=== PATIENT | female | born 1985 | race Caucasian/White ===

== ENCOUNTER 2017-05-23 16:10 | Emergency (ER) | payer OTHER ==
[2017-05-23 16:15] VITALS: BP 120/72; TEMP 98.1; BMI 31.1
[2017-05-23] MEDS ORDERED: SILVER SULFADIAZINE 1% TOP CREAM 50 GM JAR TP ONE ×2 (16:43→17:12)
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
== END 2017-05-23 17:21 | disposition home or self-care (01) ==
LOC: JERFT 16:10
PROC: 2W2FX4Z Dressing of Left Hand using Bandage (ICD-10-PCS; principal; 2017-05-23)
DX: T23.262A Burn of second degree of back of left hand, initial encounter (principal); T31.0 Burns involving less than 10% of body surface; X10.2XXA Contact with fats and cooking oils, initial encounter; Y93.G3 Activity, cooking and baking; Y92.9 Unspecified place or not applicable
CPT/HCPCS: 99281-25

== ENCOUNTER 2019-02-04 10:42 | Emergency (ER) | payer OTHER ==
[2019-02-04 10:49] VITALS: BP 111/58; PULSE 64; TEMP 98.3; BMI 29.2
--- NOTE | 2019-02-04 11:18 | PDOC ---
History of Present Illness - General Chief Complaint: Injury Stated Complaint: FALL Time Seen by Provider: 02/04/19 11:05 History Source: Patient - History of Present Illness Initial Comments: 02/04/19 11:55 33-year-old female status post slip and fall on on a wet floor and right hip pain. Patient is able to weight-bear reports pain with ROM. Patient also complained pain radiating to right lower extremity. Denies back pain. No past medical history Past History - Past Medical History Allergies/Adverse Reactions: Allergies Allergy/AdvReac Type Severity Reaction Status Date / Time No Known Drug Allergies Allergy Verified 02/04/19 10:44 Home Medications: Ambulatory Orders Ibuprofen 600 mg PO QID PRN #20 tablet 02/04/19 Asthma: No Cancer: No Cardiac Disorders: No COPD: No Diabetes: No HTN: No Seizures: No Thyroid Disease: No - Immunization History Immunization Up to Date: Yes - Suicide/Smoking/Psychosocial Hx Smoking History: Never smoked Have you smoked in the past 12 months: No Number of Cigarettes Smoked Daily: 0 Cigars Per Day: 0 Hx Alcohol Use: No Drug/Substance Use Hx: No Substance Use Type: None Hx Substance Use Treatment: No Review of Systems - Review of Systems Able to Perform ROS?: Yes Is the patient limited Romansh proficient: No Constitutional: No: Symptoms Reported, See HPI, Chills, Diaphoresis, Fever, Loss of Appetite, Malaise, Night Sweats, Weakness, Weight Stable, Unintentional Wgt. Loss, Unexplained wgt Loss, Other Musculoskeletal: Yes: Other (right hip pain) *Physical Exam - Vital Signs Last Vital Signs Temp Pulse Resp BP Pulse Ox 98.3 F 64 18 111/58 L 100 02/04/19 10:44 02/04/19 10:44 02/04/19 10:44 02/04/19 10:44 02/04/19 10:44 - Physical Exam General Appearance: Yes: Appropriately Dressed Musculoskeletal: positive: Other (bruising to right thigh, limited rom to right hip. 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 intact, Fully Oriented, Alert, Normal Mood/ Affect Medical Decision Making - Medical Decision Making 02/04/19 12:01 A: right hip pain P: urine xray: no acute fracture pain control outpatient ortho follow up *DC/Admit/Observation/Transfer Diagnosis at time of Disposition: Acute right hip pain - Discharge Dispostion Disposition: HOME - Prescriptions Prescriptions: Ibuprofen 600 mg PO QID PRN #20 tablet PRN Reason: Pain - Referrals Referrals: René Soria MD [Staff Physician] - 24 hours - Patient Instructions Printed Discharge Instructions: Help for Hip Pain Additional Instructions: Take ibuprofen every 6 hours as needed for pain. Apply ice to the area do light stretches. Follow up with an orthopedic doctor as soon as possible. Return to the emergency room for any worsening symptoms - Post Discharge Activity Forms/Work/School Notes: Back to Work
[2019-02-04] MEDS ORDERED: KETOROLAC TROMETHAMINE 30 MG/1 ML VIAL IM ONE (11:49)
[2019-02-04] MEDS ORDERED: KETOROLAC TROMETHAMINE 30 MG/1 ML VIAL ONE (11:57)
== END 2019-02-04 12:42 | disposition home or self-care (01) ==
LOC: JERFT 10:42
PROC: 3E0233Z Introduction of Anti-inflammatory into Muscle, Percutaneous Approach (ICD-10-PCS; principal; 2019-02-04)
DX: M25.551 Pain in right hip (principal); W01.0XXA Fall on same level from slipping, tripping and stumbling without subsequent striking against object, initial encounter; Y93.89 Activity, other specified; Y92.89 Other specified places as the place of occurrence of the external cause; Y99.8 Other external cause status
CPT/HCPCS: 73523-TC-FY; 73552-TC-RT-FY; 84703; 99281-25

== ENCOUNTER 2019-05-31 19:22 | Observation (INO) | payer OTHER ==
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
[2019-05-31] MEDS ORDERED: SODIUM CHLORIDE 1,000 ML IV STA (20:08)
--- NOTE | 2019-05-31 20:20 | PDOC ---
Attending Attestation - Resident Resident Name: LionelEliezerFernando - ED Attending Attestation I have performed the following: I have examined & evaluated the patient, The case was reviewed & discussed with the resident, I agree w/resident's findings & plan, Exceptions are as noted - HPI HPI: 05/31/19 20:18 33-year-old female presents to the emergency department status post a witnessed syncopal event this evening. She states that about a month ago she had a similar episode but did not seek any medical treatment. She states that she noted some vision changes and then felt weakness numbness tingling in her lower extremities and then went down. The family states she was unresponsive for about 2 minutes 05/31/19 20:20 - Physicial Exam PE: 05/31/19 21:29 33-year-old female who no acute distress seated on the gurney Head normocephalic atraumatic Neck is supple Lungs are clear to auscultation bilaterally CVS regular rate and rhythm S1-S2 no rubs or gallops or murmurs appreciated Abdomen is soft, nontender Skin warm and dry No flank tenderness elicited on exam Neuro alert, motor strength 5/5 bilaterally, moving all extremities Psych flat affect - Medical Decision Making 05/31/19 21:32 labs reviewed,neg trop,neg preg, electrolytes are normal ct scan head pending imp syncope plan OBS telemetry 05/31/19 21:36
[2019-05-31 20:36] LABS: BASO % 0.7 % (0-2.0); EOS % 3.3 % (0-4.5); HEMATOCRIT 34.6 % (32.4-45.2); LYMPH % 29.4 % (8-40); MCH 22.9 pg (25.7-33.7); MCHC 31.8 g/dl (32.0-36.0); MONO % 8.5 % (3.8-10.2); NEUT % 58.1 % (42.8-82.8); PLATELET COUNT 213 K/MM3 (134-434); RBC 4.81 M/mm3 (3.60-5.2); RDW 16.6 % (11.6-15.6); WHITE BLOOD COUNT 7.7 K/mm3 (4.0-10.0)
[2019-05-31 20:49] LABS: PH,URINE 6.5 (5.0-8.0); URINE APPEARANCE CLEAR; URINE BILIRUBIN NEGATIVE (NEGATIVE); URINE COLOR YELLOW; URINE GLUCOSE (UA) NEGATIVE (NEGATIVE); URINE KETONE NEGATIVE (NEGATIVE); URINE LEUK ESTERASE NEGATIVE (NEGATIVE); URINE NITRITE NEGATIVE (NEGATIVE); URINE PROTEIN NEGATIVE (NEGATIVE); URINE UROBILINOGEN 0.2 mg/dL (0.2-1.0)
[2019-05-31 21:05] LABS: ALBUMIN 3.9 g/dl (3.4-5.0); ALK PHOS 94 U/L (45-117); ANION GAP 8 MMOL/L (8-16); BILIRUBIN,TOTAL 0.2 mg/dL (0.2-1); CALCIUM 8.7 mg/dL (8.5-10.1); CHLORIDE 107 mmol/L (98-107); CO2 24 mmol/L (21-32); CREATININE 0.8 mg/dL (0.55-1.3); GLUCOSE,RANDOM 88 mg/dL (74-106); POTASSIUM 3.5 mmol/L (3.5-5.1); SGOT/AST 14 U/L (15-37); SGPT/ALT 26 U/L (13-61); SODIUM 139 mmol/L (136-145); TOT PROT 8.5 g/dl (6.4-8.2)
--- NOTE | 2019-05-31 23:34 | PN ---
Teaching Attending Note Name of Resident: Malissa Dunn ATTENDING PHYSICIAN STATEMENT I saw and evaluated the patient. I reviewed the resident's note and discussed the case with the resident. I agree with the resident's findings and plan as documented. SUBJECTIVE: 33-year-old female with 2 episodes of syncope last 06/01/19. First episode occurred at noon while she was cooking and second episode occurred later in the day in the afternoon. Episodes were witnessed by her family members, Lasted about 2 minutes each. There was no postictal state and patient was able to recover quickly after both incidences. No loss of bowel or bladder control. She denied any significant palpitations preceding the events. Denied any significant trauma to head. There was no seizure-like activity including convulsions. No history of epilepsy. Denied any significant headaches. Reports similar episode several weeks ago for which patient did not seek medical attention. No family history of cardiac disease. OBJECTIVE: Last Vital Signs Temp Pulse Resp BP Pulse Ox 98.4 F 67 19 104/61 100 05/31/19 19:47 05/31/19 21:21 05/31/19 21:21 05/31/19 21:21 05/31/19 21:21 GENERAL: Well developed, well nourished. Awake and alert. No acute distress. HEENT: Normocephalic, atraumatic. PERRLA, EOMI. No conjunctival pallor. Sclera are non- icteric. Moist mucous membranes. Oropharynx is clear. NECK: Supple. Full ROM. No JVD. Carotid pulses 2+ and symmetric, without bruits. No thyromegaly. No lymphadenopathy. CARDIOVASCULAR: Regular rate and rhythm. No murmurs, rubs, or gallops. Distal pulses are 2+ and symmetric. PULMONARY: No evidence of respiratory distress. Lungs clear to auscultation bilaterally. No wheezing, rales or rhonchi. ABDOMINAL: Soft. Non-tender. Non-distended. No rebound or guarding. No organomegaly. Normoactive bowel sounds. MUSCULOSKELETAL Normal range of motion at all joints. No bony deformities or tenderness. No CVA tenderness. EXTREMITIES: No cyanosis. No clubbing. No edema. No calf tenderness. SKIN: Warm and dry. Normal capillary refill. No rashes. No jaundice. PSYCHIATRIC: Cooperative. Good eye contact. Appropriate mood and affect. Abnormal Lab Results 1005/31/19 05/31/19 20:28 20:28 20:28 MCV 72.0 L MCH 22.9 L MCHC 31.8 L RDW 16.6 H AST 14 L Total Protein 8.5 H Ur Specific [place] 1.006 L Imaging reviewed EKG showed sinus rhythm with some PVCs, no ischemic changes noted. Head CT showed possible Chiari type I malformation ASSESSMENT AND PLAN: Syncope episodes as described above. Uncertain etiology, may be vasovagal or orthostatic however should rule out cardiogenic cause. May have occult underlying arrhythmia.Less likely to be seizure episode as patient did not have any preceding aura or postictal state. Noted to have possible carry type I malformation on head CT however doubt it would result in syncope episode. Admit to telemetry observation Cardiac monitoring Transthoracic echo Check orthostatics Bedrest and fall precautions Gentle IV fluid hydration Cardiology evaluation for possible Holter monitoring Check urine toxicology screen Outpatient brain MRI for possible Chiari type I malformation further evaluation Heparin subcu for DVT prophylaxis
[2019-06-01] MEDS ORDERED: ACETAMINOPHEN 325 MG TABLET (FP) PO PRN (00:08)
[2019-06-01] MEDS ORDERED: SODIUM CHLORIDE 1,000 ML IV SCH (00:15)
--- NOTE | 2019-06-01 00:17 | HP ---
CHIEF COMPLAINT: Syncope x 2 PCP: HISTORY OF PRESENT ILLNESS: 33 y/o F with no significant PMHx presents after multiple syncopal episodes. Patient says she first experienced a syncopal episode 2 months ago; At this time she denied any preceeding sx's and upon waking, she felt fine and thus did not seek medical attention. Today, she woke in her usual state of health. Around noon, patient was cooking, getting ready to bake tortillas when suddenly she collapsed. Her sister was able to catch her before she hit the ground. Patient says she felt some preceeding dizziness. Family mentions that patient fainted for about 2 minutes and upon regaining conciousness, patient felt numbness in her posterior lower extremities b/l. She then rested until the evening when again, while preparing tortillas, patient syncopized in a similar fashion prompting her to visit the ED. Patient denies any associated convulsions , tongue biting or loss of bowel/bladder control but endorses preceeding dizziness with both of todays episodes. Denies any fevers, chills, chest pain, SOB, nausea, vomiting, diarrhea, constipation, dysuria. Patient is primarily greenlandic speaking thus the hx was obtained via [id number]. ER course was notable for: (1) (2) (3) Recent Travel: Denies PAST MEDICAL HISTORY: Denies PAST SURGICAL HISTORY: 4 C-Sections Social History: Smoking: Denies Alcohol:Denies Drugs: Denies Occupation: None Residence: Home with family Ambulation: Without assistance Allergies No Known Drug Allergies Allergy (Verified 02/04/19 10:44) HOME MEDICATIONS: Home Medications Medication Instructions Recorded Ibuprofen 600 mg PO QID PRN #20 tablet 02/04/19 REVIEW OF SYSTEMS As per HPI PHYSICAL EXAMINATION Vital Signs - 24 hr 05/31/19 05/31/19 19:47 21:21 Temperature 98.4 F Pulse Rate 68 Pulse Rate [ 67 Apical] Respiratory 19 Rate Blood Pressure 106/73 Blood Pressure 104/61 [Left Arm] O2 Sat by Pulse 99 100 Oximetry (%) GENERAL: A&Ox3, NAD HEAD: NCAT EYES: PERRL, EOMI EARS, NOSE, THROAT: Moist mucous membranes. NECK: Supple, No JVD LUNGS: CTAB, No wheezes, no crackles HEART: Regular rate and rhythm, normal S1 and S2 without murmur ABDOMEN: Soft, nontender, not distended, + bowel sounds, no guarding, no rebound EXTREMITIES: 2+ pulses, No peripheral edema. NEUROLOGICAL: Cranial nerves II-XII intact. Normal speech SKIN: Warm, dry Laboratory Results - last 24 hr 05/31/19 05/31/19 05/31/19 20:28 20:28 20:28 WBC 7.7 RBC 4.81 Hgb 11.0 Hct 34.6 D MCV 72.0 L MCH 22.9 L MCHC 31.8 L RDW 16.6 H Plt Count 213 D MPV 8.0 Absolute Neuts (auto) 4.5 Neutrophils % 58.1 D Lymphocytes % 29.4 D Monocytes % 8.5 Eosinophils % 3.3 Basophils % 0.7 Nucleated RBC % 0 Sodium 139 Potassium 3.5 Chloride 107 Carbon Dioxide 24 Anion Gap 8 BUN 11.0 Creatinine 0.8 Est GFR (CKD-EPI)AfAm 112.27 Est GFR (CKD-EPI)NonAf 96.87 Random Glucose 88 Calcium 8.7 Total Bilirubin 0.2 AST 14 L ALT 26 Alkaline Phosphatase 94 Creatine Kinase 80 Troponin I < 0.02 Total Protein 8.5 H Albumin 3.9 TSH Urine Color Urine Appearance Urine pH Ur Specific [place] Urine Protein Urine Glucose (UA) Urine Ketones Urine Blood Urine Nitrite Urine Bilirubin Urine Urobilinogen Ur Leukocyte Esterase Urine HCG, Qual Negative 05/31/19 05/31/19 20:28 20:28 WBC RBC Hgb Hct MCV MCH MCHC RDW Plt Count MPV Absolute Neuts (auto) Neutrophils % Lymphocytes % Monocytes % Eosinophils % Basophils % Nucleated RBC % Sodium Potassium Chloride Carbon Dioxide Anion Gap BUN Creatinine Est GFR (CKD-EPI)AfAm Est GFR (CKD-EPI)NonAf Random Glucose Calcium Total Bilirubin AST ALT Alkaline Phosphatase Creatine Kinase Troponin I Total Protein Albumin TSH 1.30 Urine Color Yellow Urine Appearance Clear Urine pH 6.5 Ur Specific [place] 1.006 L Urine Protein Negative Urine Glucose (UA) Negative Urine Ketones Negative Urine Blood Negative Urine Nitrite Negative Urine Bilirubin Negative Urine Urobilinogen 0.2 Ur Leukocyte Esterase Negative Urine HCG, Qual Active Medications Acetaminophen (Tylenol -) 650 mg PO Q4H PRN PRN Reason: PAIN Sodium Chloride (Normal Saline -) 1,000 mls @ 75 mls/hr IV ASDIR COUNTS INCLUDE 234 BEDS AT THE [facility] Last Admin: 06/01/19 01:13 Dose: 75 mls/hr ASSESSMENT/PLAN: 33 y/o F with no significant PMHx presents after multiple syncopal episodes. #Syncope -Unclear etiology, Less likely Orthostatic given HPI, Will consider Cardiac and neuro causes -Trop <0.02 x1 -EKG revealing Frequent PVC's, VR 82, QTc 460 -Check Mag Stat, Repeat EKG -CT Head Noncon does not reveal any acute pathology -Check Orthostatics, Echo, UTox -NS @ 75 -Neurochecks Q2H -Seizure, Fall precautions -Tele -Cardio (Dr. 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 - New Patient This patient is new to me today: Yes Date on this admission: 06/01/19 - Critical Care Critical Care patient: No ATTENDING PHYSICIAN STATEMENT I saw and evaluated the patient. I reviewed the resident's note and discussed the case with the resident. I agree with the resident's findings and plan as documented. SUBJECTIVE: OBJECTIVE: ASSESSMENT AND PLAN:
[2019-06-01 06:23] VITALS: BMI 29.7
[2019-06-01] MEDS: HEPARIN NA (PORCINE) 5,000 UNITS/ML 1ML VIAL SQ SCH ×2 (06:32→15:25)
[2019-06-01 07:24] LABS: BASO % 0.6 % (0-2.0); EOS % 3.6 % (0-4.5); HEMATOCRIT 28.1 % (32.4-45.2); HEMOGLOBIN 9.4 GM/dL (10.7-15.3); LYMPH % 39.6 % (8-40); MCHC 33.4 g/dl (32.0-36.0); MEAN CELL VOLUME 71.8 fl (80-96); MEAN PLT VOLUME 8.3 fl (7.5-11.1); MONO % 7.6 % (3.8-10.2); NEUT % 48.6 % (42.8-82.8); PLATELET COUNT 162 K/MM3 (134-434); RBC 3.91 M/mm3 (3.60-5.2); RDW 16.9 % (11.6-15.6); WHITE BLOOD COUNT 5.2 K/mm3 (4.0-10.0)
--- NOTE | 2019-06-01 07:50 | DS ---
Physical Exam: SUBJECTIVE: Patient seen and examined OBJECTIVE: Vital Signs Period Temp Pulse Resp BP Sys/Phan Pulse Ox Last 24 Hr 98.2 F-98.4 F 60-71 18-20 98-119/48-73 98-100 PHYSICAL EXAM GENERAL: The patient is awake, alert, and fully oriented, in no acute distress. HEAD: Normal with no signs of trauma. EYES: PERRL, extraocular movements intact, sclera anicteric, conjunctiva clear. ENT: Ears normal, nares patent, oropharynx clear without exudates, moist mucous membranes. NECK: Trachea midline, full range of motion, supple. LUNGS: Breath sounds equal, clear to auscultation bilaterally, no wheezes, no crackles, no accessory muscle use. HEART: Regular rate and rhythm, S1, S2 without murmur, rub or gallop. ABDOMEN: Soft, nontender, nondistended, normoactive bowel sounds, no guarding, no rebound, no hepatosplenomegaly, no masses. EXTREMITIES: 2+ pulses, warm, well-perfused, no edema. NEUROLOGICAL: Cranial nerves II through XII grossly intact. Normal speech, gait not observed. PSYCH: Normal mood, normal affect. SKIN: Warm, dry, normal turgor, no rashes or lesions noted. LABS Laboratory Results - last 24 hr 05/31/19 05/31/19 05/31/19 20:28 20:28 20:28 WBC 7.7 RBC 4.81 Hgb 11.0 Hct 34.6 D MCV 72.0 L MCH 22.9 L MCHC 31.8 L RDW 16.6 H Plt Count 213 D MPV 8.0 Absolute Neuts (auto) 4.5 Neutrophils % 58.1 D Lymphocytes % 29.4 D Monocytes % 8.5 Eosinophils % 3.3 Basophils % 0.7 Nucleated RBC % 0 Sodium 139 Potassium 3.5 Chloride 107 Carbon Dioxide 24 Anion Gap 8 BUN 11.0 Creatinine 0.8 Est GFR (CKD-EPI)AfAm 112.27 Est GFR (CKD-EPI)NonAf 96.87 Random Glucose 88 Calcium 8.7 Phosphorus Magnesium Total Bilirubin 0.2 AST 14 L ALT 26 Alkaline Phosphatase 94 Creatine Kinase 80 Troponin I < 0.02 Total Protein 8.5 H Albumin 3.9 TSH Urine Color Urine Appearance Urine pH Ur Specific [place] Urine Protein Urine Glucose (UA) Urine Ketones Urine Blood Urine Nitrite Urine Bilirubin Urine Urobilinogen Ur Leukocyte Esterase Urine HCG, Qual Negative 05/31/19 05/31/19 06/01/19 20:28 20:28 00:07 WBC RBC Hgb Hct MCV MCH MCHC RDW Plt Count MPV Absolute Neuts (auto) Neutrophils % Lymphocytes % Monocytes % Eosinophils % Basophils % Nucleated RBC % Sodium Potassium Chloride Carbon Dioxide Anion Gap BUN Creatinine Est GFR (CKD-EPI)AfAm Est GFR (CKD-EPI)NonAf Random Glucose Calcium Phosphorus Magnesium 2.3 Total Bilirubin AST ALT Alkaline Phosphatase Creatine Kinase Troponin I Total Protein Albumin TSH 1.30 Urine Color Yellow Urine Appearance Clear Urine pH 6.5 Ur Specific [place] 1.006 L Urine Protein Negative Urine Glucose (UA) Negative Urine Ketones Negative Urine Blood Negative Urine Nitrite Negative Urine Bilirubin Negative Urine Urobilinogen 0.2 Ur Leukocyte Esterase Negative Urine HCG, Qual 06/01/19 06/01/19 05:25 05:25 WBC 5.2 RBC 3.91 Hgb 9.4 L Hct 28.1 L D MCV 71.8 L MCH 24.0 L MCHC 33.4 RDW 16.9 H Plt Count 162 D MPV 8.3 Absolute Neuts (auto) 2.5 Neutrophils % 48.6 Lymphocytes % 39.6 D Monocytes % 7.6 Eosinophils % 3.6 Basophils % 0.6 Nucleated RBC % 0 Sodium 140 Potassium 3.9 Chloride 112 H Carbon Dioxide 23 Anion Gap 6 L BUN 10.0 Creatinine 0.7 Est GFR (CKD-EPI)AfAm 131.94 Est GFR (CKD-EPI)NonAf 113.84 Random Glucose 83 Calcium 7.7 L Phosphorus 3.4 Magnesium 2.0 Total Bilirubin 0.4 AST 10 L ALT 20 Alkaline Phosphatase 73 Creatine Kinase Troponin I Total Protein 6.5 Albumin 2.9 L TSH Urine Color Urine Appearance Urine pH Ur Specific [place] Urine Protein Urine Glucose (UA) Urine Ketones Urine Blood Urine Nitrite Urine Bilirubin Urine Urobilinogen Ur Leukocyte Esterase Urine HCG, Qual HOSPITAL COURSE: Date of Admission:05/31/19 Date of Discharge: 06/01/19 Minutes to complete discharge: 33 <Lenny Brock - Last Filed: 06/01/19 09:37> Physical Exam: SUBJECTIVE: No complaints today. No telemetry events. OBJECTIVE: Vital Signs Period Temp Pulse Resp BP Sys/Phan Pulse Ox Last 24 Hr 98.2 F-98.4 F 60-71 18-20 98-119/48-73 98-100 PHYSICAL EXAM GENERAL: A&Ox3, NAD HEENT: NCAT, PERRL, EOMI, MMM NECK: No JVD LUNGS: CTA B/l, No wheezes, no crackles HEART: Regular rate and rhythm, normal S1 and S2 without murmur ABDOMEN: Soft, nontender, not distended, + bowel sounds, no guarding, no rebound EXTREMITIES: 2+ pulses, No peripheral edema. NEUROLOGICAL: Cranial nerves II-XII intact. Normal speech SKIN: Warm, dry LABS Laboratory Results - last 24 hr 05/31/19 05/31/19 05/31/19 20:28 20:28 20:28 WBC 7.7 RBC 4.81 Hgb 11.0 Hct 34.6 D MCV 72.0 L MCH 22.9 L MCHC 31.8 L RDW 16.6 H Plt Count 213 D MPV 8.0 Absolute Neuts (auto) 4.5 Neutrophils % 58.1 D Lymphocytes % 29.4 D Monocytes % 8.5 Eosinophils % 3.3 Basophils % 0.7 Nucleated RBC % 0 Sodium 139 Potassium 3.5 Chloride 107 Carbon Dioxide 24 Anion Gap 8 BUN 11.0 Creatinine 0.8 Est GFR (CKD-EPI)AfAm 112.27 Est GFR (CKD-EPI)NonAf 96.87 Random Glucose 88 Calcium 8.7 Magnesium Total Bilirubin 0.2 AST 14 L ALT 26 Alkaline Phosphatase 94 Creatine Kinase 80 Troponin I < 0.02 Total Protein 8.5 H Albumin 3.9 TSH Urine Color Urine Appearance Urine pH Ur Specific [place] Urine Protein Urine Glucose (UA) Urine Ketones Urine Blood Urine Nitrite Urine Bilirubin Urine Urobilinogen Ur Leukocyte Esterase Urine HCG, Qual Negative 05/31/19 05/31/19 06/01/19 20:28 20:28 00:07 WBC RBC Hgb Hct MCV MCH MCHC RDW Plt Count MPV Absolute Neuts (auto) Neutrophils % Lymphocytes % Monocytes % Eosinophils % Basophils % Nucleated RBC % Sodium Potassium Chloride Carbon Dioxide Anion Gap BUN Creatinine Est GFR (CKD-EPI)AfAm Est GFR (CKD-EPI)NonAf Random Glucose Calcium Magnesium 2.3 Total Bilirubin AST ALT Alkaline Phosphatase Creatine Kinase Troponin I Total Protein Albumin TSH 1.30 Urine Color Yellow Urine Appearance Clear Urine pH 6.5 Ur Specific [place] 1.006 L Urine Protein Negative Urine Glucose (UA) Negative Urine Ketones Negative Urine Blood Negative Urine Nitrite Negative Urine Bilirubin Negative Urine Urobilinogen 0.2 Ur Leukocyte Esterase Negative Urine HCG, Qual Imaging: Head CT: Impression: No CT evidence of acute intracranial pathology. Possible mild Chiari type I malformation. MRI evaluation is suggested, nonemergent unless otherwise clinically indicated. Mucosal thickening is seen within the partially imaged upper aspect of the left maxillary sinus. Possible adenoidal hypertrophy. HOSPITAL COURSE: Date of Admission:05/31/19 Date of Discharge: 06/01/19 Pt admitted on 05/31/19 due to syncopal episodes this time while cooking tortillas. Pt denied any trauma due to the episodes. Pt was monitored on telemetry unit and was hydrated with IVF which resulted in negative orthostatic vital signs. Pt's Head CT was positive for Arnold Chiari Malformation (as above ) and while patient was here she did not have any other syncopal episodes. Pt's telemetry did not show any events while she was here. Neurology reviewed patient and reported that she can receive an outpatient MRI and follow-up which is she instructed to do. <Terrance Pierre - Last Filed: 06/01/19 23:42> Discharge Summary Current Active Problems Syncope and collapse (Acute) - Home Medications Comprehensive Discharge Medication List: Ambulatory Orders Ibuprofen 600 mg PO QID PRN #20 tablet 02/04/19 <Lenny Brock - Last Filed: 06/01/19 09:37> Problems reviewed: Yes Reason For Visit: SYNOCOPE AND COLLAPES Current Active Problems Syncope and collapse (Acute) - Home Medications Comprehensive Discharge Medication List: Ambulatory Orders Ibuprofen 600 mg PO QID PRN #20 tablet 02/04/19 <Terrance Pierre - Last Filed: 06/01/19 23:42> Condition: Guarded - Instructions Diet, Activity, Other Instructions: Follow-up: Please follow-up with Dr. Cortes for an outpatient MRI Please follow-up with Dr. Padron for a possible holter or event monitor if your fainting continues Please follow-up with your primary care physician. If you do not have a primary care physician please follow-up with Dr. Lang to establish care Referrals: Owen Lang MD [Staff Physician] - (2-3 days) Haim Padron MD [Staff Physician] - Payam Cortes MD [Staff Physician] - Disposition: HOME This patient is new to me today: Yes Date on this admission: 06/01/19 Emergency Visit: Yes ED Registration Date: 05/31/19 Care time: The patient presented to the Emergency Department on the above date and was hospitalized for further evaluation of their emergent condition. Critical Care patient: No - Discharge Referral Referred to [facility] No <Terrance Pierre - Last Filed: 06/01/19 23:42> ATTENDING PHYSICIAN STATEMENT I saw and evaluated the patient. I reviewed the resident's note and discussed the case with the resident. I agree with the resident's findings and plan as documented. SUBJECTIVE: OBJECTIVE: ASSESSMENT AND PLAN: <Lenny Brock - Last Filed: 06/01/19 09:37> ATTENDING PHYSICIAN STATEMENT I saw and evaluated the patient. I reviewed the resident's note and discussed the case with the resident. I agree with the resident's findings and plan as documented. SUBJECTIVE: OBJECTIVE: ASSESSMENT AND PLAN: <Terrance Pierre - Last Filed: 06/01/19 23:42>
[2019-06-01 08:14] LABS: ALBUMIN 2.9 g/dl (3.4-5.0); BILIRUBIN,TOTAL 0.4 mg/dL (0.2-1); CALCIUM 7.7 mg/dL (8.5-10.1); CREATININE 0.7 mg/dL (0.55-1.3); PHOSPHOROUS 3.4 mg/dL (2.5-4.9); POTASSIUM 3.9 mmol/L (3.5-5.1); TOT PROT 6.5 g/dl (6.4-8.2)
[2019-06-01] MEDS ORDERED: FLU VACCINE QUAD 60 MCG/0.5 ML (MDV 19-20) IM ONE (10:00)
--- NOTE | 2019-06-01 12:08 | EKG ---
Test Reason : Blood Pressure : / mmHG Vent. Rate : 065 BPM Atrial Rate : 065 BPM P-R Int : 164 ms QRS Dur : 078 ms QT Int : 416 ms P-R-T Axes : 040 024 010 degrees QTc Int : 432 ms NORMAL SINUS RHYTHM NORMAL ECG WHEN COMPARED WITH ECG OF 31-MAY-2019 19:51, PREMATURE VENTRICULAR COMPLEXES ARE NO LONGER PRESENT Confirmed by Taz Bullock MD ([id number]) on 06/01/2019 12:08:16 PM Referred By: Confirmed By:Taz Bullock MD
--- NOTE | 2019-06-01 12:10 | EKG ---
Test Reason : Blood Pressure : / mmHG Vent. Rate : 082 BPM Atrial Rate : 082 BPM P-R Int : 166 ms QRS Dur : 090 ms QT Int : 394 ms P-R-T Axes : 044 035 009 degrees QTc Int : 460 ms POOR DATA QUALITY, INTERPRETATION MAY BE ADVERSELY AFFECTED SINUS RHYTHM T WAVE ABNORMALITY, CONSIDER ANTERIOR ISCHEMIA ABNORMAL ECG NO PREVIOUS ECGS AVAILABLE Confirmed by Taz Bullock MD ([id number]) on 06/01/2019 12:09:30 PM Referred By: Confirmed By:Taz Bullock MD
--- NOTE | 2019-06-01 12:13 | ECHO ---
Name: ROSALES MOMIN Exam:Adult Echocardiogram Study Date: 06/01/2019 08:32 AM Age: 33 yrs Reason For Study: Evaluate LV Function Height: 63 in Weight: 165 lb BSA: 1.8 m2 MMode/2D Measurements & Calculations IVSd: 0.94 cm LA dimension: 3.4 cm LVIDd: 4.1 cm ACS: 1.9 cm LVIDs: 2.7 cm LVPWd: 0.95 cm EDV(Teich): 73.1 ml LVOT diam: 2.0 cm ESV(Teich): 27.9 ml RV S Wu: 13.1 cm/sec Doppler Measurements & Calculations MV E max wu: 92.8 cm/sec TV V2 max: 232.1 cm/sec MV A max wu: 70.6 cm/sec TV max P.6 mmHg MV E/A: 1.3 MV dec time: 0.15 sec TR max wu: 289.1 cm/sec Med Peak E' Wu: 10.9 cm/sec TR max P.4 mmHg Med E/e': 8.5 RVSP(TR): 43.4 mmHg Lat Peak E' Wu: 12.3 cm/sec Lat E/e': 7.6 RAP systole: 10.0 mmHg Procedure A two-dimensional transthoracic echocardiogram with color flow and Doppler was performed. The patient was in normal sinus rhythm during the exam. Left Ventricle The left ventricle is normal in size. Left ventricular systolic function is normal. Ejection Fraction = 60%. Left Ventricular Filling pattern is normal for age. Right Ventricle The right ventricle is normal size. The right ventricular systolic function is normal. Atria The left atrial size is normal. Right atrial size is normal. Mitral Valve The mitral valve is normal. There is mild mitral regurgitation. Tricuspid Valve The tricuspid valve is normal. There is trace tricuspid regurgitation. There was insufficient TR dete cted to calculate RV systolic pressure. Aortic Valve The aortic valve is normal in structure and function. The aortic valve is trileaflet. No aortic regur gitation is present. Pulmonic Valve The pulmonic valve is not well seen, but is grossly normal. Trace pulmonic valvular regurgitation. Great Vessels The aortic root is normal size. Pericardium/Pleura There is no pericardial effusion. Interpretation Summary Left ventricular systolic function is normal. Ejection Fraction = 60%. The right ventricular systolic function is normal. There is mild mitral regurgitation. There is trace tricuspid regurgitation. Trace pulmonic valvular regurgitation. There is no pericardial effusion. MD Jam Loya 06/01/2019 12:12 PM
[2019-06-01 14:56] VITALS: BP 110/70; PULSE 60; TEMP 98
== END 2019-06-01 20:04 | disposition home or self-care (01) ==
LOC: JER 19:22 → JERBED 20:43 → J4W 06-01 03:59
PROVIDERS: ADMIT Internal Medicine; ATTEND Internal Medicine
PROC: 3E0337Z Introduction of Electrolytic and Water Balance Substance into Peripheral Vein, Percutaneous Approach (ICD-10-PCS; principal; 2019-05-31)
PROC: 3E0234Z Introduction of Serum, Toxoid and Vaccine into Muscle, Percutaneous Approach (ICD-10-PCS; 2019-05-31)
DX: R55 Syncope and collapse (principal); R71.8 Other abnormality of red blood cells; Z23 Encounter for immunization
CPT/HCPCS: 36415; 70450-TC; 80053; 81003; 82550; 83735; 84100; 84443; 84484; 84703; 85025; 87086; 90471; 93005; 93010; 93306-TC; 96360; 99285-25; G0378; J1644; J7030; Q2036

== ENCOUNTER 2019-06-30 08:05 | Emergency (ER) | payer OTHER ==
[2019-06-30 08:10] VITALS: BP 128/77; PULSE 62; TEMP 98; BMI 29.5
[2019-06-30] MEDS ORDERED: SODIUM CHLORIDE 0.9% 500 ML INFUS.BAG IV ONE (08:27)
[2019-06-30] MEDS ORDERED: ONDANSETRON 4 MG/2 ML VIAL IVPUSH ONE (08:27)
[2019-06-30] MEDS ORDERED: MECLIZINE HCL 25 MG TABLET (FP) PO ONE (08:27)
[2019-06-30] MEDS ORDERED: ONDANSETRON 4 MG/2 ML VIAL ONE (08:41)
--- NOTE | 2019-06-30 08:41 | PDOC ---
History of Present Illness - General Chief Complaint: Pain Stated Complaint: ABD PAIN Time Seen by Provider: 06/30/19 08:11 History Source: Patient Exam Limitations: No Limitations - History of Present Illness Initial Comments: 06/30/19 08:33 32-year-old [place]ruguayan-speaking female denies past medical history presents complaining of general weakness, nausea, intermittent dizziness, intermittent blurry vision, 2 episodes of nonbloody vomiting with epigastric pain when vomiting for the past 3 days. Denies headache, neck pain, fever, chills, diarrhea, chest pain, shortness of breath, tinnitus, falls, urinary complaints or any other symptoms. Patient has been eating and drinking normally. Has not taken any meds for her symptoms. Does not have a PMD. ROS: GENERAL/CONSTITUTIONAL: Generalized weakness, dizziness, no fever, chills HEAD, EYES, EARS, NOSE AND THROAT: Intermittent blurry vision, No ear pain or discharge, No sore throat CARDIOVASCULAR: No chest pain RESPIRATORY: No shortness of breath or cough GASTROINTESTINAL: Epigastric pain, nausea, vomiting, denies diarrhea GENITOURINARY: No dysuria MUSCULOSKELETAL: No neck or back pain SKIN: No rash NEUROLOGIC: No headache, loss of consciousness, or loss of sensation PE: GENERAL: Appears fatigued HEAD: NCAT EYES: Pupils equal, round and reactive to light, sclera anicteric, conjunctiva clear ENT: pharynx: no erythema, no exudate, uvula midline NECK: supple CHEST: nontender RESP: clear, no w/r/r CARDIO: rrr, no m/g/r ABD: +BS, soft, minimal epigastric tenderness to palpation, no rebound, no guarding,, non distended BACK: no midline spinal ttp, no CVAT EXTREMITIES: Normal range of motion, no edema NEUROLOGICAL: Normal speech, normal gait SKIN: Warm, Dry Is this a multiple visit Asthma Patient?: No Past History - Past Medical History Allergies/Adverse Reactions: Allergies Allergy/AdvReac Type Severity Reaction Status Date / Time No Known Drug Allergies Allergy Verified 06/30/19 08:10 Home Medications: Ambulatory Orders Ibuprofen [Motrin -] 600 mg PO PRN PRN 06/30/19 Asthma: No Cancer: No Cardiac Disorders: No COPD: No CHF: No Diabetes: No HTN: No Seizures: No Thyroid Disease: No - Immunization History Td Vaccination: Yes TDAP Vaccination: Yes Immunization Up to Date: Yes - Psycho Social/Smoking Cessation Hx Smoking History: Never smoked Have you smoked in the past 12 months: No Number of Cigarettes Smoked Daily: 0 Cigars Per Day: 0 Information on smoking cessation initiated: No Hx Alcohol Use: Yes (occasional) Drug/Substance Use Hx: No Substance Use Type: None Hx Substance Use Treatment: No *Physical Exam - Vital Signs Last Vital Signs Temp Pulse Resp BP Pulse Ox 98 F 62 17 128/77 99 06/30/19 08:08 06/30/19 08:08 06/30/19 08:08 06/30/19 08:08 06/30/19 08:08 ED Treatment Course - LABORATORY CBC & Chemistry Diagram: 06/30/19 08:35 06/30/19 08:35 Medical Decision Making - Medical Decision Making 06/30/19 08:41 33-year-old complaining of general weakness, intermittent dizziness, intermittent blurry vision, nausea, 2 episodes of vomiting over the past 3 days Ordered urine CBC, CMP, UA IV fluids 1 L Zofran 4 mg IV x1 Meclizine 25 mg p.o. Reassess 06/30/19 11:04 Patient admits feeling sad and depressed given that her attempted to commit suicide 2 months ago. Patient denies suicidal ideation, homicidal thoughts. I called [facility] [phone], they advised patient present to clinic to make an appointment as soon as possible for a visit with a therapist. No indication for the patient to be evaluated by psychiatrist in the ED. Labs reviewed test negative Patient feels better after IV fluids, Zofran IV and meclizine p.o. Advised to make an appointment with a PMD. Return precautions given. Discharge - Discharge Information Problems reviewed: Yes Clinical Impression/Diagnosis: Weakness Condition: Stable Disposition: HOME - Admission No - Follow up/Referral - Patient Discharge Instructions Additional Instructions: Take Zofran 4 mg every 6-8 hours as needed for nausea Take meclizine 25 mg 1 tablet every 8 hours as needed for dizziness Remain hydrated, [place] [address] at to schedule an appointment within 2 to 3 days If worsening abdominal pain, chest pain, shortness of breath, nausea, vomiting, fever, chills, suicidal thoughts, homicidal thoughts return to the ED immediately Call primary care center at [phone] to schedule a follow-up appointment with a medical doctor - Post Discharge Activity
[2019-06-30 08:50] LABS: EOS % 2.7 % (0-4.5); HEMOGLOBIN 10.8 GM/dL (10.7-15.3); MCH 23.5 pg (25.7-33.7); MCHC 32.6 g/dl (32.0-36.0); MEAN CELL VOLUME 72.2 fl (80-96); MEAN PLT VOLUME 7.9 fl (7.5-11.1); MONO % 8.1 % (3.8-10.2); NEUT % 62.2 % (42.8-82.8); PLATELET COUNT 206 K/MM3 (134-434); RBC 4.58 M/mm3 (3.60-5.2); RDW 16.9 % (11.6-15.6); WHITE BLOOD COUNT 5.2 K/mm3 (4.0-10.0)
[2019-06-30] MEDS ORDERED: MECLIZINE HCL 25 MG TABLET (FP) ONE (09:05)
[2019-06-30 09:21] LABS: ALBUMIN 3.8 g/dl (3.4-5.0); BILIRUBIN,TOTAL 0.3 mg/dL (0.2-1); BLOOD UREA NITROGEN 12.2 mg/dL (7-18); CALCIUM 8.8 mg/dL (8.5-10.1); CREATININE 0.6 mg/dL (0.55-1.3); POTASSIUM 4.1 mmol/L (3.5-5.1); TOT PROT 8.4 g/dl (6.4-8.2)
[2019-06-30 10:01] LABS: PH,URINE 6.5 (5.0-8.0); URINE APPEARANCE CLEAR; URINE BILIRUBIN NEGATIVE (NEGATIVE); URINE COLOR YELLOW; URINE GLUCOSE (UA) NEGATIVE (NEGATIVE); URINE KETONE NEGATIVE (NEGATIVE); URINE LEUK ESTERASE NEGATIVE (NEGATIVE); URINE NITRITE NEGATIVE (NEGATIVE); URINE PROTEIN NEGATIVE (NEGATIVE); URINE UROBILINOGEN 0.2 mg/dL (0.2-1.0)
--- NOTE | 2019-06-30 10:56 | PDOC ---
*Physical Exam - Vital Signs Last Vital Signs Temp Pulse Resp BP Pulse Ox 98 F 62 17 128/77 99 06/30/19 08:08 06/30/19 08:08 06/30/19 08:08 06/30/19 08:08 06/30/19 08:08 - Physical Exam Comments: 06/30/19 10:55 The patient was examined by [AIDAN Woodward] under my direct supervision. I personally evaluated the patient. I concur with the above findings and the plan of care. ED Treatment Course - LABORATORY CBC & Chemistry Diagram: 06/30/19 08:35 06/30/19 08:35 - ADDITIONAL ORDERS Additional order review: Laboratory Results 06/30/19 06/30/19 06/30/19 09:50 09:50 08:35 Sodium 137 Potassium 4.1 Chloride 108 H Carbon Dioxide 24 Anion Gap 6 L BUN 12.2 Creatinine 0.6 Est GFR (CKD-EPI)AfAm 138.80 Est GFR (CKD-EPI)NonAf 119.76 Random Glucose 99 Calcium 8.8 Total Bilirubin 0.3 AST 11 L ALT 19 Alkaline Phosphatase 99 Total Protein 8.4 H Albumin 3.8 Urine Color Yellow Urine Appearance Clear Urine pH 6.5 Ur Specific Tutor Key 1.023 Urine Protein Negative Urine Glucose (UA) Negative Urine Ketones Negative Urine Blood Negative Urine Nitrite Negative Urine Bilirubin Negative Urine Urobilinogen 0.2 Ur Leukocyte Esterase Negative Urine HCG, Qual Negative 06/30/19 08:35 RBC 4.58 MCV 72.2 L MCHC 32.6 RDW 16.9 H MPV 7.9 Neutrophils % 62.2 D Lymphocytes % 26.0 D Monocytes % 8.1 Eosinophils % 2.7 Basophils % 1.0 - Medications Given in the ED: ED Medications Discontinued Medications Generic Name Dose Route Start Last Admin Trade Name Freq PRN Reason Stop Dose Admin Meclizine HCl 25 mg 06/30/19 08:27 06/30/19 09:07 Antivert - PO 06/30/19 08:28 25 mg ONCE ONE Administration Ondansetron HCl 4 mg 06/30/19 08:27 06/30/19 08:46 Zofran Injection IVPUSH 06/30/19 08:28 4 mg ONCE ONE Administration Sodium Chloride 1,000 ml 06/30/19 08:27 06/30/19 08:46 Normal Saline - IV 06/30/19 08:28 1,000 ml ONCE ONE Administration Discharge - Discharge Information Problems reviewed: Yes Clinical Impression/Diagnosis: Weakness Condition: Stable Disposition: HOME - Additional Discharge Information Prescriptions: Meclizine HCl 25 mg PO Q6H 7 Days #15 tablet Ondansetron HCl [Zofran] 4 mg PO Q8H 7 Days #15 tablet - Follow up/Referral - Patient Discharge Instructions Patient Printed Discharge Instructions: DI for Abdominal Pain-Adult, DI for Dizziness-Nonvertigo Additional Instructions: Take Zofran 4 mg every 6-8 hours as needed for nausea Take meclizine 25 mg 1 tablet every 8 hours as needed for dizziness Remain hydrated, [place] [id number] at to schedule an appointment within 2 to 3 days If worsening abdominal pain, chest pain, shortness of breath, nausea, vomiting, fever, chills, suicidal thoughts, homicidal thoughts return to the ED immediately Call primary care center at [phone] to schedule a follow-up appointment with a medical doctor - Post Discharge Activity
== END 2019-06-30 11:25 | disposition home or self-care (01) ==
LOC: JER 08:05
PROC: 3E033GC Introduction of Other Therapeutic Substance into Peripheral Vein, Percutaneous Approach (ICD-10-PCS; principal; 2019-06-30)
DX: R53.1 Weakness (principal)
CPT/HCPCS: 36415; 80053; 81003; 84703; 85025; 96374; 99283-25

== ENCOUNTER 2020-08-04 08:09 | Emergency (ER) | payer OTHER ==
[2020-08-04 08:38] VITALS: BMI 31.8
[2020-08-04] MEDS ORDERED: ACETAMINOPHEN 325 MG TABLET (FP) PO ONE (09:36)
[2020-08-04] MEDS ORDERED: ACETAMINOPHEN 325 MG TABLET (FP) ONE (09:41)
[2020-08-04 09:59] LABS: PH,URINE 6.5 (5.0-8.0); URINE APPEARANCE CLOUDY; URINE BILIRUBIN NEGATIVE (NEGATIVE); URINE COLOR YELLOW; URINE GLUCOSE (UA) NEGATIVE (NEGATIVE); URINE KETONE NEGATIVE (NEGATIVE); URINE LEUK ESTERASE NEGATIVE (NEGATIVE); URINE NITRITE NEGATIVE (NEGATIVE); URINE PROTEIN TRACE (NEGATIVE)
[2020-08-04 10:52] VITALS: PULSE 86; TEMP 98.1
[2020-08-04 12:48] VITALS: BP 120/79
== END 2020-08-04 12:48 | disposition home or self-care (01) ==
LOC: JER 08:09
DX: M54.5 Low back pain (principal); Y07.01 Husband, perpetrator of maltreatment and neglect
CPT/HCPCS: 70480-TC; 71046-TC-FY; 81003; 84703; 99285-25

== ENCOUNTER 2022-06-09 19:03 | Emergency (ER) | payer OTHER ==
[2022-06-09 19:12] VITALS: BP 119/80; PULSE 72; RESP 18; TEMP 98.2; BMI 27.4
[2022-06-09 21:13] LABS: BASO % 0.6 % (0-2.0); EOS % 1.5 % (0-4.5); HEMATOCRIT 35.5 % (32.4-45.2); HEMOGLOBIN 11.9 GM/dL (10.7-15.3); LYMPH % 34.2 % (8-40); MCH 26.8 pg (25.7-33.7); MCHC 33.5 g/dl (32.0-36.0); MEAN CELL VOLUME 80.1 fl (80-96); MEAN PLT VOLUME 7.9 fl (7.5-11.1); MONO % 8.7 % (3.8-10.2); PLATELET COUNT 217 10^3/uL (134-434); RBC 4.43 M/mm3 (3.60-5.2); WHITE BLOOD COUNT 4.9 K/mm3 (4.0-10.0)
[2022-06-09 21:22] LABS: INR 1.14 (0.83-1.09); PROTHROMBIN TIME (PATIENT) 13.1 SEC (9.7-13.0)
[2022-06-09 21:25] LABS: ACTIVATED PTT 32.6 SECONDS (25.2-36.5)
[2022-06-09 21:42] LABS: BLOOD UREA NITROGEN 10.3 mg/dL (7-18); CALCIUM 8.6 mg/dL (8.5-10.1)
[2022-06-09 21:47] LABS: BILIRUBIN,TOTAL 0.4 mg/dL (0.2-1); TOT PROT 8.8 g/dl (6.4-8.2)
== END 2022-06-09 23:19 | disposition home or self-care (01) ==
LOC: JER 19:03
DX: R53.1 Weakness (principal)
CPT/HCPCS: 36415; 70450-TC; 70496-TC; 70498-TC; 80053; 84484; 84703; 85025; 85610; 85730; 86850; 86900; 86901; 93005; 93010; 99285-25

== ENCOUNTER 2023-05-30 19:47 | Emergency (ER) | payer OTHER ==
[2023-05-30 20:32] VITALS: BP 131/81; PULSE 68; RESP 18; TEMP 98.7; BMI 30.2
[2023-05-30] MEDS ORDERED: ACETAMINOPHEN 1000 MG/100 ML BAG IVPB ONE (20:32)
[2023-05-30] MEDS ORDERED: SODIUM CHLORIDE 0.9% 500 ML INFUS.BAG IV ONE (20:32)
[2023-05-30] MEDS ORDERED: ACETAMINOPHEN INJECTION 100 ML IVPB ONE (20:34)
[2023-05-30 21:05] LABS: EOS % 4.3 % (0-4.5); HEMATOCRIT 34.8 % (32.4-45.2); HEMOGLOBIN 11.6 GM/dL (10.7-15.3); LYMPH % 26.2 % (8-40); MCH 25.1 pg (25.7-33.7); MCHC 33.4 g/dl (32.0-36.0); MEAN CELL VOLUME 75.2 fl (80-96); MEAN PLT VOLUME 7.8 fl (7.5-11.1); MONO % 7.7 % (3.8-10.2); NEUT % 60.8 % (42.8-82.8); PLATELET COUNT 247 10^3/uL (134-434); RBC 4.63 M/mm3 (3.60-5.2); RDW 15.4 % (11.6-15.6); WHITE BLOOD COUNT 6.5 K/mm3 (4.0-10.0)
[2023-05-30 21:24] LABS: POTASSIUM 3.7 mmol/L (3.5-5.1)
[2023-05-30 21:26] LABS: ALBUMIN 3.7 g/dl (3.4-5.0); BLOOD UREA NITROGEN 13.1 mg/dL (7-18); CALCIUM 8.9 mg/dL (8.5-10.1); MAGNESIUM 2.3 mg/dL (1.8-2.4)
[2023-05-30 21:29] LABS: CREATININE 0.8 mg/dL (0.55-1.3)
[2023-05-30 21:31] LABS: BILIRUBIN,TOTAL 0.2 mg/dL (0.2-1); TOT PROT 8.5 g/dl (6.4-8.2)
== END 2023-05-30 23:55 | disposition home or self-care (01) ==
LOC: JER 19:47
PROC: 3E033NZ Introduction of Analgesics, Hypnotics, Sedatives into Peripheral Vein, Percutaneous Approach (ICD-10-PCS; principal; 2023-05-30)
DX: R42 Dizziness and giddiness (principal); R51.9 Headache, unspecified; S09.90XA Unspecified injury of head, initial encounter; R55 Syncope and collapse; W01.198A Fall on same level from slipping, tripping and stumbling with subsequent striking against other object, initial encounter; Z20.822 Contact with and (suspected) exposure to COVID-19
CPT/HCPCS: 0241U-QW; 36415; 70450-TC; 71045-TC-FY; 72125-TC; 80053; 82962; 83735; 84484; 84703; 85025; 93005; 93010; 99285-25